=== PATIENT | female | born 2005 | race African-American/Black ===

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

== ENCOUNTER 2023-06-14 15:28 | Emergency (ER) | payer MEDICAID ==
[~2023-06-14] VITALS: Ht 165.1 cm; Wt 68.0 kg
[2023-06-14 16:23] LABS: BILIRUBIN Negative (Negative); BLOOD Trace-Intact (Negative); CLARITY Cloudy (Clear); COLOR Yellow (Yellow); GLUCOSE Negative (Negative); KETONE Trace (Negative); LEUKO ESTERASE 2+ (Negative); NITRITE Negative (Negative); SPECIFIC GRAVITY 1.015 (1.001-1.030)
[2023-06-14 16:29] LABS: BACTERIA 1+; WBC 21-30 wbc/hpf (0-5)
[2023-06-14] MEDS ORDERED: METRONIDAZOLE500 M1 PO (16:54)
== END 2023-06-14 17:11 | disposition home or self-care (01) ==
LOC: ED 15:28
PROVIDERS: Internal Medicine
DX: Z20.2 Contact with and (suspected) exposure to infections with a predominantly sexual mode of transmission (principal); Z87.891 Personal history of nicotine dependence; Z79.899 Other long term (current) drug therapy